=== PATIENT | male | born 1985 | race Caucasian/White ===

== ENCOUNTER 2017-10-02 19:03 | Emergency (ER) | payer MEDICAID ==
[2017-10-02] MEDS ORDERED: Ketorolac INJ* 60 MG/2 ML VIAL IM ONE (20:19)
--- NOTE | 2017-10-02 20:54 | ED ---
Lower Extremity - HPI Summary HPI Summary: Patient is a 32-year-old male who presents emergency department for increased pain to his right leg times one day. Patient states he was recently diagnosed with type I diabetics. He sees a family physician at [place]. Patient states he was recently prescribed gabapentin for neuropathy pain to his legs but he finished prescription and did not have a refill. Patient states that gabapentin was improving his pain. Patient does not recall any specific injuries or falls but states he was remodeling a house today which he believes exacerbated his pain. He otherwise denies recent sickness, back pain, fever. Pain is noted to right anterior thigh and is described as sharp and burning and is intermittent. - History of Current Complaint Chief Complaint: EDExtremityLower Stated Complaint: RT LEG PROBLEM Time Seen by Provider: 10/02/17 19:51 Hx Obtained From: Patient Pain Intensity: 6 - Allergies/Home Medications Allergies/Adverse Reactions: Allergies Allergy/AdvReac Type Severity Reaction Status Date / Time No Known Allergies Allergy Verified 10/02/17 19:07 PMH/Surg Hx/FS Hx/Imm Hx Previously Healthy: Yes Infectious Disease History: No Infectious Disease History: Denies: Traveled Outside the [place] in Last 30 Days - Social History Occupation: Employed Full-time Lives: With Family Alcohol Use: Occasionally Substance Use Type: Reports: None Smoking Status (MU): Never Smoked Tobacco Review of Systems Constitutional: Negative Negative: Fever, Chills Positive: Other - pain to right upper leg Skin: Negative All Other Systems Reviewed And Are Negative: Yes Physical Exam Triage Information Reviewed: Yes Vital Signs On Initial Exam: Initial Vitals Temp Pulse Resp BP Pulse Ox 97.7 F 81 18 139/87 98 10/02/17 19:05 10/02/17 19:05 10/02/17 19:05 10/02/17 19:05 10/02/17 19:05 Vital Signs Reviewed: Yes Appearance: Positive: Well-Appearing - Patient lying on bed on his cell phone in no acute distress. Skin: Positive: Warm, Dry Head/Face: Positive: Normal Head/Face Inspection Eyes: Positive: Normal, MICKIE Musculoskeletal: Positive: Other - 5/5 strength in bilateral LEs. No calf tenderness or edema. Mild pain over right SI joint. No midline back tenderness. Neurological: Positive: Normal, CN Intact II-III Psychiatric: Positive: Normal Diagnostics - Vital Signs Vital Signs Temp Pulse Resp BP Pulse Ox 05/06/18 19:05 97.7 F 81 18 139/87 98 - Laboratory Lab Statement: Any lab studies that have been ordered have been reviewed, and results considered in the medical decision making process. Lower Extremity Course/Dx - Course Course Of Treatment: Pt. presenting to the ER with complaints of exacerbation of diabetic neuropathy pain to his right upper leg. No recent injuries or falls. He is afebrile. Exam is unremarkable. Agreed to a 3 day supply of gabepentin until he can see his PCP this week. He was given a dose of toradol in the ER for pain. Pt. to call PCP tomorrow morning for apt. To return to ER if sxs change or worsen. - Diagnoses Differential Diagnosis/HQI/PQRI: Positive: Arthritis, Contusion, Sprain, Strain Provider Diagnoses: Diabetic neuropathy Discharge - Sign-Out/Discharge Documenting (check all that apply): Discharge/Admit/Transfer - Discharge Plan Condition: Good Disposition: HOME Prescriptions: Gabapentin CAP(*) [Neurontin 100 mg CAP(*)] 100 mg PO TID 3 Days #9 cap Patient Education Materials: Diabetic Peripheral Neuropathy (ED) Referrals: Myron Wilson DO [Primary Care Provider] - Additional Instructions: Call your PCP tomorrow for an appointment and for a refill of gabapentin Return to ER if symptoms change or worsen - Billing Disposition and Condition Condition: GOOD Disposition: HOME
[2017-10-02 20:56] VITALS: BP 117/75
== END 2017-10-02 20:53 | disposition home or self-care (01) ==
LOC: ED 19:03
DX: E10.40 Type 1 diabetes mellitus with diabetic neuropathy, unspecified (principal); M79.604 Pain in right leg
CPT/HCPCS: 99282; J1885